=== PATIENT | male | born 1990 | race Caucasian/White ===

== ENCOUNTER 2018-02-20 03:29 | Emergency (ER) | payer SELFPAY ==
[~2018-02-20] VITALS: Ht 167.6 cm; Wt 56.7 kg
[2018-02-20 03:31] VITALS: BP 00/00
[2018-02-20] MEDS ORDERED: VALTREX1000 MG PO (04:59)
[2018-02-20] MEDS ORDERED: MOTRIN800 MG PO (04:59)
[2018-02-20] MEDS ORDERED: NORCO 10/3251 TABLET PO (04:59)
== END 2018-02-20 03:33 | disposition left against medical advice (07) ==
LOC: EME 03:29
DX: Z20.2 Contact with and (suspected) exposure to infections with a predominantly sexual mode of transmission (principal); Z53.21 Procedure and treatment not carried out due to patient leaving prior to being seen by health care provider

== ENCOUNTER 2018-02-20 04:22 | Emergency (ER) | payer SELFPAY ==
[~2018-02-20] VITALS: Ht 167.6 cm; Wt 56.7 kg
[2018-02-20] MEDS ORDERED: MOTRIN800 MG PO (04:59)
[2018-02-20] MEDS ORDERED: VALTREX1000 MG PO (04:59)
[2018-02-20] MEDS ORDERED: NORCO 10/3251 TABLET PO (04:59)
[2018-02-20 05:12] LABS: SOURCE URINE
[2018-02-20 05:28] VITALS: BP 122/78
[2018-02-21 12:02] LABS: CHLAMYDIA TRACHOMATIS NEGATIVE; NEISSERIA GONORRHOEAE NEGATIVE
== END 2018-02-20 05:30 | disposition home or self-care (01) ==
LOC: EME 04:22
PROVIDERS: Physician Assistant
DX: A60.01 Herpesviral infection of penis (principal); A60.02 Herpesviral infection of other male genital organs; Z20.2 Contact with and (suspected) exposure to infections with a predominantly sexual mode of transmission
CPT/HCPCS: 87491; 87591; 99281; 99284; J0696; J1885